=== PATIENT | female | born 1985 ===

== ENCOUNTER 2017-05-31 04:06 | Inpatient (IN) | payer BC ==
[2017-05-31 05:21] LABS: #Basophils 0.1 thou/uL (0.0-0.2); #Lymphocytes 1.6 thou/uL (1.20-3.40); #Monocytes 1.3 thou/uL (0.11-0.59); #Neutrophils 15.9 thou/uL (1.40-6.50); %Basophils 0.3 % (0.0-1.0); %Eosinophils 0.1 % (0.0-10.0); %Lymphocytes 8.6 % (21.0-51.0); %Monocytes 6.8 % (0.0-10.0); %Neutrophils 84.1 % (42.0-75.0); Hemoglobin 14.1 g/dL (12.0-16.0); Mean Corpuscular HGB CONC 33.8 g/dL (32.0-36.0); Mean Corpuscular Hemoglobin 34.7 pg (27.0-31.0); Mean Platelet Volume 6.8 fL (7.4-10.4); Platelet Count 514 thou/uL (130-400); RBC Distribution Width 11.2 % (11.5-14.5); Red Blood Cell (RBC) Count 4.06 mill/uL (4.20-5.40); White Blood Cell (WBC) Count 18.9 thou/uL (4.8-10.8)
[2017-05-31 05:42] LABS: ALT (SGPT) 48 U/L (8-55); AST (SGOT) 7 U/L (5-34); Albumin 4.3 g/dL (3.5-5.0); Alkaline Phosphatase 126 U/L (40-150); Anion Gap 26 mmol/L (10-20); BUN (Urea Nitrogen) 41 mg/dL (7.0-18.7); Bilirubin, Total 0.4 mg/dL (0.2-1.2); CK (CPK) 35 U/L (29-168); Calc. Creatinine Clearance 0 mL/min (70-130); Calcium 10.3 mg/dL (7.8-10.44); Carbon Dioxide 15 mmol/L (22-29); Chloride 105 mmol/L (98-107); Estimated GFR-MDRD 36; Globulin 3.1 g/dL (2.4-3.5); Glucose 498 mg/dL (70-105); Potassium 4.6 mmol/L (3.5-5.1); Protein, Total 7.4 g/dL (6.0-8.3); Sodium 141 mmol/L (136-145)
[2017-05-31] MEDS ORDERED: Insulin Regular 100 units/100 ml in NS IVPB SCH (05:45)
[2017-05-31 05:50] LABS: CKMB 1.7 ng/mL (0-6.6); Troponin I Less than 0.010 ng/mL (< 0.028)
[2017-05-31 05:54] LABS: Base Excess-Venous -8.7 mmol/L (-30.0-30.0); Bicarbonate (HCO3v) 12.4 mmol/L (1.0-85.0); CO2 Tension (PvCO2) 18.3 mmHg (41.0-51.0); Calcium, Ionized 0.92 mmol/L (1.12-1.32); Hemoglobin - Calc 15.6 g/dL (12.0-18.0); Lactate 3.94 mmol/L (0.50-2.20); O2 Tension (PvO2) 213.9 mmHg (35.0-45.0); Potassium 4.9 mmol/L (3.4-4.7); pH (Venous) 7.441 (7.35-7.45); vO2 Saturation-calc 99.8 % (0.0-100.0)
[2017-05-31] MEDS ORDERED: Ondansetron HCl/PF 4 MG/2 ML Vial ONE (06:09)
[2017-05-31] MEDS ORDERED: cefTRIAXone\\ROCEPHIN 1 GM, Syringe 0.4 ML in Sterile Water 9.6 ML SLOW IVP SCH (06:15)
--- NOTE | 2017-05-31 07:29 | RAD ---
CHEST 1 VIEW: HISTORY: A 31-year-old female with diabetic ketoacidosis with vomiting and diarrhea, tonsillitis. FINDINGS: Heart size is within normal limits. The lungs are clear. No pneumonia, edema, or pleural effusion. IMPRESSION: No acute intrathoracic disease. Stable from prior study. POS: [facility]
[2017-05-31 08:35] VITALS: BMI 21.7
[2017-05-31 09:18] LABS: Bilirubin Negative (Negative); Blood, Urine Large (Negative); Clarity CLEAR (Clear); Glucose, Urine (Dipstick) >=1000 mg/dL (Negative); Leukocyte Negative (Negative); Nitrite Negative (Negative); Protein, Urine (Dipstick) 30 mg/dL (Neg-Trace); Specific Gravity, Urine 1.029 (1.002-1.036); Urobilinogen 0.2 mg/dL (0.2-1.0)
[2017-05-31 09:20] LABS: Bacteria/HPF Rare-Few HPF (None Seen); Hyaline Casts/LPF 0-3 HYALINE CAST LPF (0-3 Hyaline); Pathc Cast-AUWi Flag 0.13 (0-2.49); RBC/HPF 0-3 HPF (0-3); Squamous Epithelial 0-3 HPF (0-3); WBC/HPF 0-3 HPF (0-3)
[2017-05-31 09:25] LABS: BHCG - Serum Negative (NEGATIVE); Pregs Control Background? CLEAR/WHITE (CLR/WHITE); Pregs Control Bar Appear? YES (CONTROL BAR)
[2017-05-31 09:30] LABS: Mean Corpuscular HGB CONC 34.1 g/dL (32.0-36.0); Mean Platelet Volume 6.6 fL (7.4-10.4); Platelet Count 477 thou/uL (130-400); RBC Distribution Width 11.3 % (11.5-14.5); White Blood Cell (WBC) Count 21.7 thou/uL (4.8-10.8)
[2017-05-31 09:42] LABS: Osmolality, Serum 329 mOsm/kg (280-295)
[2017-05-31 09:46] LABS: Lactic Acid 3.7 mmol/L (0.5-2.2)
[2017-05-31 09:49] LABS: Anion Gap 20 mmol/L (10-20); BUN (Urea Nitrogen) 34 mg/dL (7.0-18.7); Calc. Creatinine Clearance 49 mL/min (70-130); Calcium 9.8 mg/dL (7.8-10.44); Carbon Dioxide 23 mmol/L (22-29); Chloride 106 mmol/L (98-107); Estimated GFR-MDRD 42; Glucose 263 mg/dL (70-105); Magnesium 2.1 mg/dL (1.6-2.6); Phosphorus 2.1 mg/dL (2.3-4.7); Potassium 4.6 mmol/L (3.5-5.1); Sodium 144 mmol/L (136-145)
[2017-05-31] MEDS ORDERED: Ondansetron HCl/PF 4 MG/2 ML Vial IVP PRN (09:55)
[2017-05-31] MEDS ORDERED: NS 0.9% w/ 20 MEQ KCL 1,000 ML IV PRN ×2 (09:58)
[2017-05-31] MEDS ORDERED: Dextrose 5 %-0.45 % NaCl 1,000 ML IV PRN (09:58)
[2017-05-31] MEDS ORDERED: Sodium Chloride 0.9% 1,000 ML IV PRN ×4 (09:58)
[2017-05-31] MEDS ORDERED: CCU Electrolyte Replacement 1 EACH IVPB ONE (09:58)
[2017-05-31] MEDS ORDERED: Potassium Chloride 40 MEQ in Sodium Chloride 0.9% 250 ML 250 ML IVPB PRN (10:45)
[2017-05-31] MEDS ORDERED: Potassium Chloride 20 MEQ TAB PO PRN (10:45)
[2017-05-31] MEDS ORDERED: Potassium Phosphate 9 MMOL in Sodium Chloride 0.9% 100 ML IVPB PRN (10:45)
[2017-05-31] MEDS ORDERED: Potassium Chloride 40 MEQ in Premix Bag 1 BAG IVPB PRN (10:45)
[2017-05-31] MEDS ORDERED: Potassium Phosphate 12 MMOL in Sodium Chloride 0.9% 250 ML 250 ML IV PRN (10:45)
[2017-05-31] MEDS ORDERED: CCU ELECTROLYTE REPLACEMENT PROTOCOL FS PRN (10:45)
[2017-05-31] MEDS ORDERED: Magnesium 2 GM/NS 0.9% 100 ML 2 GM in Premix Bag 1 BAG IVPB PRN (10:45)
[2017-05-31] MEDS ORDERED: Potassium Phosphate 15 MMOL in Sodium Chloride 0.9% 250 ML 250 ML IV PRN (10:45)
[2017-05-31] MEDS ORDERED: Magnesium Oxide 400 MG TAB PO PRN ×2 (10:45)
[2017-05-31] MEDS: Clindamycin/D5W 600 MG in Premix Bag 1 BAG IVPB SCH ×2 (11:57→18:12)
[2017-05-31] MEDS: D5 1/2 NS w/20 mEq KCL 1,000 ML IV PRN ×2 (12:00→18:36)
--- NOTE | 2017-05-31 12:25 | RAD ---
CHEST 1 VIEW: HISTORY: Chest pain. COMPARISON: Earlier exam on the same date. FINDINGS: Cardiac silhouette and pulmonary vasculature are unremarkable. Mediastinum is midline. There is no confluent airspace consolidation or evidence of pneumothorax. monitoring analyst leads overlie the ches t. IMPRESSION: No active cardiopulmonary abnormalities are demonstrated. POS: [facility]
--- NOTE | 2017-05-31 12:29 | HP ---
CHIEF COMPLAINT: "Diabetic ketoacidosis." This is a complaint that is listed on the patient's ER do cumentation; however, patient's personal chief complaint is nausea and vomiting. HISTORY OF PRESENT ILLNESS: It appears that this is a lady who was transferred from [place] to our emergency department for diabetic ketoacidosis. She is an insulin-dependent diabetic, who typically uses an insulin pump at home, which she has not brought with her. She states that approximately 3 d ays ago, she started having throat pain and a sensation of swelling that has provided painful swallow ing. Denies any prior symptoms. Denies any fevers, chills, trouble breathing, shortness of breath, preceding viral illness, cough, sputum production. While this was her chief complaint upon presentat ion to the emergency department, she was subsequently found to have DKA and transferred to our facili for DKA. It appears that prior to arrival at our facility, she was diagnosed with tonsillitis as well. It does not appear that she was given any treatment or further diagnostic evaluation at that p oint in time that I can see documented or that the patient is aware of. In our emergency department, the patient was identified as having diabetic ketoacidosis, started on a n insulin drip, empirically started at 10 units, and given 2 liters of lactated Ringer's as a bolus. It appears that she was given also a dose of ceftriaxone for an upper respiratory infection. At the time of my evaluation, the patient still complains of throat pain. Denies any difficulty ankit thing. Denies any new complaints. States that she has had DKA before, but is more than 10 years ago . REVIEW OF SYSTEMS: As per HPI, includes the following: Constitutional: No recent weight changes, n o fevers, no chills as discussed above. HEENT: Painful swallowing. The patient denies any neck ful lness. Denies any new headaches. Endorses the remainder of her pain is all in her "throat." Cardio vascular: Denies any chest pain, chest pressure, shortness of breath, left-sided arm numbness or tin gling, diaphoresis. Respiratory: Denies any cough or sputum production. No recent history of such. ENT: No nasal congestion, postnasal drip. Gastrointestinal: Endorses some nausea, particularly w ith attempting to swallow. Without attempting to swallow, denies any nausea, vomiting, or abdominal pain. Denies any diarrhea or constipation. Genitourinary: Denies any dysuria, change in urinary qu antity or quality. Musculoskeletal: Denies any new myalgias or arthralgias. Skin: Denies any new rashes or lymphadenopathy. PAST MEDICAL HISTORY: Significant for, 1. Type 1 diabetes. 2. Status post section. 3. Status post tubal ligation. FAMILY HISTORY: No known family history of insulin-dependent diabetes or recurrent upper respiratory or tonsillar infections. SOCIAL HISTORY: The patient is an active tobacco user, half a pack a day. Denies any alcohol or ill icit drug use. Has multiple tattoos and piercings, none within the last month. ALLERGIES: The patient denies any known sick contacts. MEDICATIONS: Please see EMR for full details. No changes in the last 2 weeks to the patient's home medication list. PHYSICAL EXAMINATION: VITAL SIGNS: Temperature 99.6, heart rate of 107, respirations 18, satting 96% on room air, blood pr essure 114/76. GENERAL: Awake, alert, appropriate, in no acute distress, provides a reasonable history, oriented x3 . HEENT: Bilateral tonsillar enlargement without overt exudate noted. Reasonable dentition. No palpa ble lymphadenopathy. NECK: No thyromegaly. RESPIRATORY: Reasonable air movement. Clear to auscultation. No wheezes, rales, or rhonchi. CARDIOVASCULAR: S1, S2. Pulses 2+ bilateral upper extremity. No pitting pedal edema. ABDOMEN: Positive bowel sounds, soft, nontender to palpation. NEUROLOGIC: Moving all 4 extremities equally and able to self reposition in the bed without assistan ce. LABORATORY DATA AND IMAGING: WBC 21.7, hemoglobin 13.0, hematocrit 38.0, platelets 477. Sodium 144, potassium 4.6, chloride 106, bicarb 23, BUN 34, creatinine 1.45, glucose point of care 263. Serum o smolality 329, lactic acid 3.7, phosphorus 2.1. UA significant for large blood, ketones of 80, great er than 1000 glucose, protein of 30. Beta hydroxybutyrate 2.96. Initial chest x-ray on presentation , "no acute intrathoracic disease. Stable from prior study." ASSESSMENT AND PLAN: A 31-year-old type 1 insulin diabetic, presenting in diabetic ketoacidosis with nausea and vomiting. 1. The patient's presenting symptoms of nausea and vomiting could certainly be related to her diabet ic ketoacidosis. The patient has been initiated on diabetic ketoacidosis protocol. She is currently in the IMCU. Continue with IV fluids, insulin drip titration, patient is n.p.o. Suspect that the p recipitating etiology is her tonsillitis. See discussion below regarding her tonsillitis. 2. Sepsis secondary to tonsillitis with tachycardia, elevated lactate, and a potential source of inf ection and leukocytosis. Certainly some of these parameters could be driven by the patient's diabeti c ketoacidosis, but she also has a very clear etiology of infection at this point in time. Sepsis pr otocol has also been initiated. The patient has a less than 3 second capillary refill with reasonabl e skin turgor. 3. Tonsillitis question of peritonsillar cellulitis, as the patient does not have trismus or fever. We will add an empiric clindamycin with close monitoring of the patient's clinical status. Ultrasou nd submandibular evaluation also requested. At this point in time, I do not feel that the patient cl inically is demonstrating any uvula deviation or any other signs or symptoms suggesting an underlying abscess. However, if the patient does fail to improve within the next 24 hours with supportive ammy gement and empiric antibiotics, would have a low threshold for further radiological examination. In the meantime, the patient is being evaluated for Strep as well as a viral panel. Greater than 30 minutes critical care time spent coordinating care for the patient. The patient is a dmitted to the [facility] as a FULL CODE.
[2017-05-31] MEDS ORDERED: ISOVUE-370 76%-LOCM 1 ML ONE (13:27)
[2017-05-31 13:46] LABS: Anion Gap 11 mmol/L (10-20); BUN (Urea Nitrogen) 27 mg/dL (7.0-18.7); Calc. Creatinine Clearance 62 mL/min (70-130); Calcium 9.8 mg/dL (7.8-10.44); Carbon Dioxide 27 mmol/L (22-29); Chloride 109 mmol/L (98-107); Estimated GFR-MDRD 55; Glucose 145 mg/dL (70-105); Sodium 143 mmol/L (136-145)
--- NOTE | 2017-05-31 14:20 | ULT ---
ULTRASOUND SOFT TISSUE NECK: HISTORY: A 31-year-old female with a history of swelling in the submandibular and peritonsillar region with co ncern for cellulitis versus abscess. Swelling of the neck, unable to swallow for 1 week. FINDINGS: Right and left submandibular and upper neck regions are evaluated. There are some enlarged lymph nod es in the right neck measuring up to approximately 0.7 x 1.2 x 2.2 cm. In the left neck, there are m ultiple lymph nodes, the largest measuring approximately 0.7 x 1.7 x 1.7 cm. These have more the louie earance of reactive lymph nodes. The left and right submandibular glands appear unremarkable. No ev idence for abscess. IMPRESSION: Some borderline-sized right and left neck lymph nodes. Unremarkable right and left visualized subman dibular glands. No evidence of abscess. If the patient has persistent or worsening symptoms, consideration for a followup soft tissue neck CT with IV contrast might be of benefit. POS: [facility]
[2017-05-31] MEDS: Heparin 5,000 UNITS/ML VIAL SC SCH ×2 (15:13→22:15)
--- NOTE | 2017-05-31 16:54 | CT ---
CT OF THE NECK WITH CONTRAST 05/31/17 HISTORY: Stridor. Pain in the neck and hoarseness. TECHNIQUE: Multiple contiguous axial images were obtained in a CT of the neck with contrast. Sagittal and harley l reformats were performed. FINDINGS: There is a multifocal area of low density along the right aspect of the false vocal cord. This involv es the aryepiglottic fold. This measures approximately 2.0 x 1.0 x 2.9 cm in size. This could represe nt edema or a multiloculated abscess along the right false vocal cord. The airway is mildly narrowed in this location. This fluid collection does not extend down to the true vocal cords. No mucosal abnormality is seen in the nasopharynx or oropharynx. The subglottic mucosa is unremarkabl e. The patient has a tongue piercing. The visualized intracranial structures are unremarkable. There are mildly prominent bilateral cervical lymph nodes which are likely reactive. The paranasal sinuses are well aerated except for a small mucous retention cyst in the right maxillary sinus. The visualized lung apices are unremarkable. The bones are unremarkable. IMPRESSION: Complex fluid collection surrounding the true vocal cords and extending to the aryepiglottic folds. T his may represent an abscess in this location. POS: [facility]
[2017-05-31 17:07] LABS: Anion Gap 14 mmol/L (10-20); BUN (Urea Nitrogen) 24 mg/dL (7.0-18.7); Calc. Creatinine Clearance 64 mL/min (70-130); Calcium 9.3 mg/dL (7.8-10.44); Carbon Dioxide 26 mmol/L (22-29); Chloride 104 mmol/L (98-107); Estimated GFR-MDRD 56; Glucose 281 mg/dL (70-105); Potassium 4.5 mmol/L (3.5-5.1); Sodium 139 mmol/L (136-145)
[2017-05-31] MEDS ORDERED: Dextrose 5% in Water 1,000 ML IV PRN (17:08)
[2017-05-31] MEDS ORDERED: Dextrose 50% Abboject 50 ML SYRINGE IVP PRN (17:08)
[2017-05-31] MEDS ORDERED: Insulin Detemir 100 UNITS/ML 10 UNITS in Pre-Filled Syringe 1 EACH SC SCH (17:30)
[2017-05-31] MEDS ORDERED: Aluminum & Magnesium Hydroxide 60 ML, diphenhydrAMINE 150 MG, Lidocaine 2% Viscous Solu... SSW SCH ×4 (18:30)
[2017-05-31] MEDS ORDERED: Vancomycin HCl 750 MG in Sodium Chloride 0.9% 250 ML 250 ML IVPB SCH (18:45)
[2017-05-31] MEDS: HumaLOG 300 UNITS/3 ML VIAL SC PRN (20:41)
[2017-05-31] MEDS ORDERED: Cefepime 2 GM in Sodium Chloride 0.9% 100 ML IVPB SCH (21:00)
--- NOTE | 2017-05-31 21:07 | CON ---
DATE OF CONSULTATION: 05/31/2017 SERVICE: Pulmonary Medicine. REASON FOR CONSULTATION: Diabetic ketoacidosis. HISTORY OF PRESENT ILLNESS: The patient is a 31-year-old white female with past medical history significant for type 1 diabetes mellitus. She was in her usual state of health when she had swelling and odynophagia for roughly 3 days prior to presenting to the hospital. Because of difficulty swallowing, she stopped taking p.o. Because of this, she discontinued her insulin and developed diabetic ketoacidosis. She was initially on empiric insulin drip at 10 units per hour the Emergency Department. Overnight, she seemed to close. That being said, she has inspiratory stridor, prolonged expiratory phase, and looks uncomfortable whenever she tries to breathe a little bit more quickly. When she is sleeping comfortably with tidal respirations, there is still in audible prolonged expiratory and prolonged inspiratory phase. Otherwise, she has never had a similar presentation prior to this. Previously, she had fairly decent control of her type 1 diabetes. PAST MEDICAL HISTORY: Diabetes mellitus, type 1. PAST SURGICAL HISTORY: 1. section x1. 2. Tubal ligation. FAMILY HISTORY: Noncontributory. SOCIAL HISTORY: She smokes half pack on a daily basis and has a 5-pack year history of smoking. She denies any alcohol or illicit drugs. She has no exposure to chemicals, dust, asbestos, or tuberculosis. She has no sick contacts that she is aware of. ALLERGIES: No known drug allergies. MEDICATIONS: List of her inpatient medications were reviewed. Multiple small updates were made. REVIEW OF SYSTEMS: General, head, ears, eyes, nose, throat, cardiovascular, respiratory, GI, , musculoskeletal, neurologic, and skin is negative except as mentioned in the HPI. PHYSICAL EXAMINATION: VITAL SIGNS: Afebrile, pulse 96, blood pressure 128/73, respirations 16, saturation 96% on room air. GENERAL: Patient is awake, alert, in no apparent distress. LUNGS: Decreased air entry. There is a slightly prolonged expiratory phase. I do not appreciate wheezing or rhonchi. HEART: Normal rate, regular. ABDOMEN: Soft, nontender, nondistended. Bowel sounds are positive. MUSCULOSKELETAL: No cyanosis or clubbing. There is no pitting in the bilateral lower extremities. NEUROLOGIC: Grossly nonfocal. LABORATORY DATA: WBC 21.7, hemoglobin 13.0, platelets 477,000. Neutrophil count was elevated. PH 7.44, pCO2 of 18, pO2 of 213. Creatinine 1.14 and gently down trending. BUN 27. Basic metabolic profile is otherwise unremarkable. Sodium 143. Blood sugars ranged from 176-159. Calcium 9.8. Serum is negative. Lactate was originally 2.7 and is up trending to 3.7. Liver function studies were previously unremarkable. Phosphorus is low, but magnesium falls within the normal limits. Group A Streptococcus was negative. Current culture is pending. IMAGING DATA: 1. Soft tissues ultrasound of the neck demonstrates borderline sized right and left neck lymph nodes. Submandibular glands were unremarkable. No evidence of significant abscess. 2. Chest x-ray demonstrates no acute cardiopulmonary abnormality. Bilateral nipple studs are in place. Cardiac silhouette is roughly normal on this portable film. ASSESSMENT: 1. Diabetic ketoacidosis. 2. Stridor. 3. Severe sepsis. 4. Acute kidney injury, improving. PLAN: Other the kidney injury is improving, we will get a dedicated CT of the neck of the soft tissue with contrast. Hopefully, this will identify what we may or may not be dealing with here. We are going to watch the patient's respiratory status closely. If she has a difficult time handling her secretions , she will be empirically intubated in the operating room. Pulmonary Critical Care will continue to follow while she remains in this location. 70 minutes have been devoted to this patient in various activities. I personally reviewed all imaging studies and laboratory data noted within this document. For at least half of this time, I was interacting with the patient at bedside or coordinating care with the care team. For the remainder of the time, I was immediately available to the patient in the hospital unit. RYAN
[2017-05-31] MEDS: Famotidine/PF 20 mg/2ml Vial SLOW IVP SCH (22:15)
[2017-05-31] MEDS: Cefepime 2 GM, Syringe 2.5 ML in Sterile Water 10 ML SLOW IVP SCH (22:15)
[2017-06-01] MEDS: metroNIDAZOLE 500 MG in Premix Bag 1 BAG IVPB SCH ×5 (00:07→23:20)
--- NOTE | 2017-06-01 02:46 | HP ---
DATE OF EVALUATION: 05/31/2017 CHIEF COMPLAINT: I am seeing Courtney in consultation at the request of Dr. Edmonds at the Intensive C are Unit for evaluation and treatment of laryngeal swelling. HISTORY OF PRESENT ILLNESS: The patient is a 31-year-old woman who has had about a week long history of sore throat that has progressively worsened. She complains of right-sided pain. She finds it di fficult to swallow because of the pain and she finds it difficult to breathe if she is exerting herse lf, but at rest, she seems to be breathing well. She denies any hemoptysis. She has never had anyth ing similar previously. She does have a history of diabetes. A CT scan was performed because of her sepsis evaluation and her sore throat and was noted to have some soft tissue swelling around the lar ynx, so I was asked to evaluate the patient. PAST MEDICAL HISTORY: Diabetes. PAST SURGICAL HISTORY: No ear, nose, and throat surgery. CURRENT MEDICATIONS: Reviewed including antibiotic. She is on cefepime and Flagyl. REVIEW OF SYSTEMS: She has had fever. She has sore throat, but no drooling. She denies shortness o f breath or palpitations. No vomiting or diarrhea. No cough. No easy bruising or bleeding. PHYSICAL EXAMINATION: GENERAL: The patient is a healthy appearing woman who is resting comfortably in supine position when I arrived in the IMU and arouses easily and is appropriately interactive. HEENT: Head is normocephalic. The parotid and submandibular glands are smooth. There is normal fac ial tone. External ears and nose show no scars, lesions, or masses. Ear canals are clear. Rhinosco py was performed with flexible endoscopy. She has a deviated septum to the right side, but the mucos a is pink and moist throughout without any pus or polyps. The nasopharynx was examined. The posteri or choanae are patent to fossa of Rosenmuller and torus tubarius are normal with [place], moist mucosa. No purulent discharge noted. Oral cavity, lips, teeth, and gums are in good repair. Hard and soft palate are normal. Tongue protrudes midline, has a tongue piercing. The posterior oropharynx is sym metrical with 1+ tonsils and no erythema or exudates. Pharyngeal mucosa is healthy in appearance. H ypopharynx, larynx was examined with the flexible endoscope. The base of tongue, vallecula, epiglott is, and pharyngeal gutters are all normal in appearance. She does have some minimal exudates over th e supraglottic larynx and she has an abscess formed over the right arytenoid. The airway was patent. The vocal cords were mobile and meet in the midline and the subglottic space was completely clear. NECK: There is no mass, thyromegaly. Trachea is midline. There is no stridor, but she does have so me inspiratory and expiratory sound consistent with just some airway edema, but is very minimal. IMAGING: Data reviewed the CT scan which showed soft tissue swelling and fluid collection over the s upraglottic larynx. A little bit of edema in the postcricoid area, but there was no extension either laterally or inferiorly. IMPRESSION: Laryngeal abscess was very small and I do not believe airway concern at this time. PLAN: I have discussed with Dr. Edmonds my thoughts, felt that it was appropriate to observe at this time as the lesion looks like it is about ready to rupture on its own. The alternative would be to intubate her in the ICU, taken to the operating room, intubated her, and perform an incision and jonah rodriguez; but given her comfort level, I think where fine observing her. I did recommend increasing cove r Staph and Strep. I also think a dose of steroids would be helpful to help with the edema and will be happy to reevaluate at any time.
[2017-06-01 04:43] LABS: #Lymphocytes 2.1 thou/uL (1.20-3.40); #Monocytes 1.4 thou/uL (0.11-0.59); #Neutrophils 10.9 thou/uL (1.40-6.50); %Basophils 0.1 % (0.0-1.0); %Eosinophils 0.2 % (0.0-10.0); %Lymphocytes 14.3 % (21.0-51.0); %Monocytes 9.7 % (0.0-10.0); %Neutrophils 75.6 % (42.0-75.0); Hemoglobin 12.3 g/dL (12.0-16.0); Mean Corpuscular HGB CONC 33.6 g/dL (32.0-36.0); Mean Corpuscular Hemoglobin 34.9 pg (27.0-31.0); Mean Platelet Volume 6.5 fL (7.4-10.4); Platelet Count 397 thou/uL (130-400); RBC Distribution Width 11.3 % (11.5-14.5); Red Blood Cell (RBC) Count 3.52 mill/uL (4.20-5.40); White Blood Cell (WBC) Count 14.4 thou/uL (4.8-10.8)
[2017-06-01 05:14] LABS: Anion Gap 10 mmol/L (10-20); BUN (Urea Nitrogen) 16 mg/dL (7.0-18.7); Calc. Creatinine Clearance 85 mL/min (70-130); Calcium 9.4 mg/dL (7.8-10.44); Carbon Dioxide 26 mmol/L (22-29); Chloride 107 mmol/L (98-107); Estimated GFR-MDRD 79; Glucose 148 mg/dL (70-105); Potassium 4.2 mmol/L (3.5-5.1); Sodium 139 mmol/L (136-145)
[2017-06-01] MEDS: Vancomycin HCl 750 MG in Sodium Chloride 0.9% 250 ML 250 ML IVPB SCH ×2 (05:54→17:45)
[2017-06-01] MEDS: Famotidine/PF 20 mg/2ml Vial SLOW IVP SCH ×2 (07:15→20:49)
[2017-06-01] MEDS: Heparin 5,000 UNITS/ML VIAL SC SCH ×3 (07:15→20:50)
[2017-06-01] MEDS: predniSONE 20 MG TAB PO SCH (07:15)
[2017-06-01] MEDS: HumaLOG 300 UNITS/3 ML VIAL SC PRN ×3 (07:22→17:00)
[2017-06-01] MEDS: Cefepime 2 GM, Syringe 2.5 ML in Sterile Water 10 ML SLOW IVP SCH ×2 (09:06→20:48)
[2017-06-01] MEDS: Insulin Detemir 100 UNITS/ML 10 UNITS in Pre-Filled Syringe 1 EACH SC SCH ×2 (09:06→20:50)
--- NOTE | 2017-06-01 10:52 | PRG ---
DATE OF SERVICE: 06/01/2017 SERVICE: Pulmonary Medicine. INTERVAL HISTORY: The patient feels no better, no worse today. She continues to work a little bit t o get air in and out of her lungs. That being said, she has horrendous discomfort associated with ea ch swallow. She denies any current fevers, chills, nausea or vomiting. Because she has had no progr essive improvement over the past 24 hours, ENT is planning on lancing this lesion under general anest hesia. Otherwise, there has been no interval change to her condition. Her DKA is under much better control. PHYSICAL EXAMINATION: VITAL SIGNS: Afebrile, pulse 78, blood pressure 122/89, respirations 19, saturation 98% on room air. GENERAL: Patient is awake, alert, no apparent distress. LUNGS: Slightly reduced air entry. There is a slightly prolonged expiratory phase as well as inspir atory phase. HEART: Normal rate, regular. ABDOMEN: Soft, nontender, nondistended. Bowel sounds are positive. MUSCULOSKELETAL: No cyanosis or clubbing. No pitting in the bilateral lower extremities. NEUROLOGIC: Grossly nonfocal. LABORATORY DATA: WBC 14.4, hemoglobin 12.3, platelets 397,000. PH 7.44, pCO2 18. Basic metabolic p rofile is essentially unremarkable at this time. Her gap is closed and her acidosis has resolved. B eta hydroxybutyrate acid has resolved. Group A strep final culture was unremarkable. Respiratory vi ramirez panel was negative as was the urine culture. IMAGING: CT soft tissue of the neck demonstrates findings consistent with an abscess involving the a rytenoid. ASSESSMENT: 1. Diabetic ketoacidosis, resolved. 2. Stridor. 3. Abscess involving laryngeal structures. 4. Severe sepsis, improving. 5. Acute kidney injury, resolved. PLAN: The patient is going to go down for an I&D of this abscess under general anesthesia this after noon. Pulmonary or Critical Care will continue to follow while the patient remains in this location. After the I&D is done, if the patient is still protecting her airway quite well, she can be transit ioned to the medical unit. We will continue our antibiotics including cefepime, metronidazole, and v ancomycin.
--- NOTE | 2017-06-01 12:07 | PDOC.PN ---
- Subjective Encounter Start Date: 06/01/17 Encounter Start Time: 12:05 Subjective: nsg notes rev, julia ovn, no new c/o, mother at bedside, seated in bed -: eating lunch, good spirit, still has pain i nthroat - controlled, toleratin -: PO - Objective Resuscitation Status: Resuscitation Status FULL:Full Resuscitation Vital Signs & Weight: Vital Signs (12 hours) Temp Pulse Resp BP BP Pulse Ox 06/01/17 11:37 97.6 F 79 18 124/79 98 06/01/17 07:30 98.5 F 78 19 98 06/01/17 07:14 98.5 F 78 19 122/89 98 06/01/17 03:50 98.7 F 71 20 147/85 H 99 06/01/17 00:18 99 F 79 20 128/67 96 Weight Weight 123 lb I&O: 05/31/17 06/01/17 06/02/17 06:59 06:59 06:59 Intake Total 3313 1600 Output Total 755 300 Balance 2558 1300 Result Diagrams: 06/02/17 05:06 06/02/17 05:06 Additional Labs: Accuchecks 06/01/17 06/01/17 06/01/17 11:09 07:22 03:56 POC Glucose 263 H 225 H 122 H 06/01/17 05/31/17 05/31/17 00:00 22:08 19:54 POC Glucose 148 H 139 H 180 H 05/31/17 05/31/17 05/31/17 18:58 18:05 17:00 POC Glucose 185 H 226 H 305 H 05/31/17 05/31/17 05/31/17 16:00 15:01 14:02 POC Glucose 211 H 188 H 159 H 05/31/17 05/31/17 13:04 11:55 POC Glucose 127 H 176 H Phys Exam - Physical Examination Constitutional: NAD HEENT: PERRLA, moist MMs, sclera anicteric Neck: no nodes, no JVD coarse throughout particularly RML RLL no wheezing, reasonable air mvmt Cardiovascular: RRR, no significant murmur, no rub Gastrointestinal: soft, no distention, positive bowel sounds Musculoskeletal: no edema, pulses present Psychiatric: normal affect, A&O x 3 Dx/Plan (1) DKA, type 1 Code(s): E10.10 - TYPE 1 DIABETES MELLITUS WITH KETOACIDOSIS WITHOUT COMA Status: Acute (2) Peritonsillar abscess Code(s): J36 - PERITONSILLAR ABSCESS Status: Acute (3) Sepsis Code(s): A41.9 - SEPSIS, UNSPECIFIED ORGANISM Status: Acute - Plan DKA improved * off insulin gtt on SQ regimen, tolerating PO sepsis 2/2 periepigotteal abscess, immproved * appreciate critical care c/s * continue empiric vanc, metronidazole, cefepime - will treat as if pt has a component of immunocompromise 2/2 longstanding diabetes and severity of disease * symptomatic mgmt peritonsillar/ periepiglotteal abscess * appreciate ENT c/s * abx as above * tentative plan for endoscopic eval today diet: as vijaya activity: as vijaya dvt ppx: heparin Review of Systems - Medications/Allergies Allergies/Adverse Reactions: Allergies Allergy/AdvReac Type Severity Reaction Status Date / Time No Known Drug Allergies Allergy Verified 05/31/17 08:03 Medications: Current Medications Dextrose/Water (Dextrose 50%) 25 gm IVP PRN PRN PRN Reason: HYPOGLYCEMIA PROTOCOL Famotidine (Pepcid) 20 mg SLOW IVP Q12HR ON LICENSE OF [facility] Last Admin: 06/01/17 07:15 Dose: 20 mg Glucagon (Glucagon) 1 mg IM PRN PRN PRN Reason: HYPOGLYCEMIA PROTOCOL Heparin Sodium (Porcine) (Heparin) 5,000 units SC TID ON LICENSE OF [facility] Last Admin: 06/01/17 07:15 Dose: 5,000 units Dextrose/Sodium Chloride (D5 1/2 Ns) 1,000 mls @ 250 mls/hr IV .Q4H PRN; Protocol PRN Reason: Step 4 of DKA Protocol Potassium Chloride/Dextrose/Sod Cl (D5 1/2 Ns W/20 Meq Kcl) 1,000 mls @ 250 mls /hr IV .Q4H PRN; Protocol PRN Reason: Step 4 of DKA Protocol Last Admin: 05/31/17 18:36 Dose: 1,000 mls Sodium Chloride (Normal Saline 0.9%) 1,000 mls @ 500 mls/hr IV .Q2H PRN; Protocol PRN Reason: Step 1 of DKA Protocol Sodium Chloride (Normal Saline 0.9%) 1,000 mls @ 1,000 mls/hr IV .Q1H PRN; Protocol PRN Reason: Step 1 of DKA Protocol Sodium Chloride (Normal Saline 0.9%) 1,000 mls @ 250 mls/hr IV .Q4H PRN; Protocol PRN Reason: SEE STEP 3 OF DKA PROTOCOL Sodium Chloride (Normal Saline 0.9%) 1,000 mls @ 500 mls/hr IV .Q2H PRN; Protocol PRN Reason: Step 2 of DKA Protocol Potassium Chloride/Sodium Chloride (Ns 0.9% W/ 20 Meq Kcl) 1,000 mls @ 500 mls/ hr IV .Q2H PRN; Protocol PRN Reason: Step 2 of DKA Protocol Potassium Chloride/Sodium Chloride (Ns 0.9% W/ 20 Meq Kcl) 1,000 mls @ 250 mls/ hr IV .Q4H PRN; Protocol PRN Reason: SEE STEP 3 OF DKA PROTOCOL Potassium Chloride 40 meq/ (Sodium Chloride) 270 mls @ 135 mls/hr IVPB ASDIR PRN PRN Reason: FOR SERUM K+ 2.5 - 3.5 Potassium Chloride 40 meq/ (Device) 100 mls @ 50 mls/hr IVPB ASDIR PRN PRN Reason: FOR SERUM K+ 2.5 - 3.5 Magnesium Sulfate 1 gm/ Sodium (Chloride) 102 mls @ 102 mls/hr IV PRN PRN PRN Reason: MAG LEVEL 1.4 - 2.0 Magnesium Sulfate 2 gm/ Device 100 mls @ 100 mls/hr IVPB ASDIR PRN PRN Reason: MAGNESIUM < 1.4 Potassium Phosphate 9 mmol/ (Sodium Chloride) 103 mls @ 25.75 mls/hr IVPB ASDIR PRN PRN Reason: Phosphate 1.0-1.8 Potassium Phosphate 12 mmol/ (Sodium Chloride) 254 mls @ 63.5 mls/hr IV ASDIR PRN PRN Reason: Serum phosphate 0.5-0.9 Potassium Phosphate 15 mmol/ (Sodium Chloride) 255 mls @ 63.75 mls/hr IV ASDIR PRN PRN Reason: Serum Phos < 0.5 Insulin Detemir 10 units/ (Miscellaneous Medication) 0.1 mls @ 0 mls/hr SC BID TER[facility] Last Admin: 06/01/17 09:06 Dose: 0.1 mls Dextrose/Water (D5w) 1,000 mls @ 0 mls/hr IV INF PRN; As Directed PRN Reason: HYPOGLYCEMIA PROTOCOL Metronidazole 500 mg/ Device 100 mls @ 100 mls/hr IVPB 0600,1200,1800,2359 ON LICENSE OF [facility] Last Admin: 06/01/17 05:54 Dose: 100 mls Vancomycin HCl 750 mg/ Sodium (Chloride) 250 mls @ 250 mls/hr IVPB 0600,1800 ON LICENSE OF [facility] Last Admin: 06/01/17 05:54 Dose: 250 mls Cefepime HCl 2 gm/ Syringe 2.5 (ml/ Sterile Water) 12.5 mls @ 150 mls/hr SLOW IVP 0900,2100 ON LICENSE OF [facility] Last Admin: 06/01/17 09:06 Dose: 12.5 mls Insulin Human Lispro (Humalog) 0 units SC .MODERATE SLIDING SC PRN; Protocol PRN Reason: MODERATE SLIDING SCALE Last Admin: 06/01/17 07:22 Dose: 4 unit Magnesium Oxide (Magnesium Oxide) 400 mg PO BIDPRN PRN PRN Reason: FOR SERUM MAG 1.4 - 2.0 Magnesium Oxide (Magnesium Oxide) 800 mg PO PRN PRN PRN Reason: FOR SERUM MAG < 1.4 Miscellaneous Medication (Phos-Nak) 1 pkt PO TIDPRN PRN PRN Reason: FOR PHOS LEVEL 1.0 - 1.8 Miscellaneous Medication (Phos-Nak) 2 pkt PO TIDPRN PRN PRN Reason: FOR PHOS LEVEL 0.5 - 1.0 Miscellaneous Medication (Pharmacy To Dose) 1 each IVPB PRN PRN PRN Reason: Pharmacy to dose Morphine Sulfate (Morphine) 2 mg SLOW IVP Q2H PRN PRN Reason: Pain Last Admin: 06/01/17 01:46 Dose: 2 mg Ccu Electrolyte (Replacement Protocol) 0 each FS PRN PRN PRN Reason: FOR ELECTROLYTE REPLACEMENT Ondansetron HCl (Zofran) 4 mg IVP Q6H PRN PRN Reason: Nausea/Vomiting Potassium Chloride (K-Dur) 40 meq PO ASDIR PRN PRN Reason: FOR SERUM K+ 2.5 - 3.5 Potassium Chloride (Klor-Con) 40 meq PER TUBE ASDIR PRN PRN Reason: FOR SERUM K+ 2.5-3.5 Prednisone (Prednisone) 40 mg PO QAM-[facility] Last Admin: 06/01/17 07:15 Dose: 40 mg
[2017-06-02] MEDS: metroNIDAZOLE 500 MG in Premix Bag 1 BAG IVPB SCH ×4 (05:11→23:16)
[2017-06-02 05:41] LABS: #Lymphocytes 1.9 thou/uL (1.20-3.40); #Monocytes 0.9 thou/uL (0.11-0.59); #Neutrophils 6.4 thou/uL (1.40-6.50); %Basophils 0.1 % (0.0-1.0); %Eosinophils 0.2 % (0.0-10.0); %Lymphocytes 20.8 % (21.0-51.0); %Neutrophils 68.8 % (42.0-75.0); Hemoglobin 12.1 g/dL (12.0-16.0); Mean Corpuscular HGB CONC 33.6 g/dL (32.0-36.0); Mean Corpuscular Hemoglobin 34.9 pg (27.0-31.0); Mean Platelet Volume 6.5 fL (7.4-10.4); Platelet Count 368 thou/uL (130-400); Red Blood Cell (RBC) Count 3.47 mill/uL (4.20-5.40); White Blood Cell (WBC) Count 9.2 thou/uL (4.8-10.8)
[2017-06-02 06:06] LABS: Vancomycin, Trough 3.4 ug/mL
[2017-06-02 06:22] LABS: Anion Gap 12 mmol/L (10-20); BUN (Urea Nitrogen) 11 mg/dL (7.0-18.7); Calc. Creatinine Clearance 108 mL/min (70-130); Calcium 9.2 mg/dL (7.8-10.44); Carbon Dioxide 27 mmol/L (22-29); Chloride 105 mmol/L (98-107); Estimated GFR-MDRD Greater than 90; Glucose 134 mg/dL (70-105); Potassium 3.6 mmol/L (3.5-5.1); Sodium 140 mmol/L (136-145)
[2017-06-02] MEDS: Vancomycin HCl 750 MG in Sodium Chloride 0.9% 250 ML 250 ML IVPB SCH (06:39)
[2017-06-02] MEDS: Insulin Detemir 100 UNITS/ML 10 UNITS in Pre-Filled Syringe 1 EACH SC SCH ×2 (08:11→20:32)
[2017-06-02] MEDS: Heparin 5,000 UNITS/ML VIAL SC SCH ×3 (08:12→20:32)
[2017-06-02] MEDS: Famotidine/PF 20 mg/2ml Vial SLOW IVP SCH ×2 (08:14→20:31)
[2017-06-02] MEDS: predniSONE 20 MG TAB PO SCH (08:14)
[2017-06-02] MEDS: Cefepime 2 GM, Syringe 2.5 ML in Sterile Water 10 ML SLOW IVP SCH ×2 (08:14→20:30)
--- NOTE | 2017-06-02 09:49 | PDOC.PN ---
- Subjective Encounter Start Date: 06/02/17 Encounter Start Time: 09:47 Subjective: nsg notes rev, julia ovn, was able to sleep overnight and is currently -: feeling hungry - Objective Resuscitation Status: Resuscitation Status FULL:Full Resuscitation Vital Signs & Weight: Vital Signs (12 hours) Temp Pulse Resp BP Pulse Ox 06/02/17 07:15 97.8 F 65 15 124/86 98 06/02/17 04:00 98.2 F 70 20 148/90 H 99 06/02/17 00:00 98.8 F 70 20 143/80 H 99 Weight Admit Weight 123 lb Weight 123 lb I&O: 06/01/17 06/02/17 06/03/17 06:59 06:59 06:59 Intake Total 3313 7570 Output Total 755 2100 Balance 2558 5470 Result Diagrams: 06/02/17 05:06 06/02/17 05:06 Additional Labs: Accuchecks 06/02/17 06/02/17 06/02/17 07:13 04:36 00:29 POC Glucose 111 H 125 H 250 H 06/01/17 06/01/17 06/01/17 20:49 15:20 11:09 POC Glucose 248 H 217 H 263 H Phys Exam - Physical Examination Constitutional: NAD HEENT: PERRLA, moist MMs Respiratory: no wheezing, no rales, no rhonchi mildly stridorous subjectively imprv compared to yesterday Cardiovascular: RRR, no significant murmur, no rub Gastrointestinal: soft, non-tender, no distention, positive bowel sounds Musculoskeletal: no edema, pulses present Neurological: moves all 4 limbs Psychiatric: normal affect, A&O x 3 Skin: no rash, normal turgor, cap refill <2 seconds Dx/Plan (1) DKA, type 1 Code(s): E10.10 - TYPE 1 DIABETES MELLITUS WITH KETOACIDOSIS WITHOUT COMA Status: Acute (2) Peritonsillar abscess Code(s): J36 - PERITONSILLAR ABSCESS Status: Acute (3) Sepsis Code(s): A41.9 - SEPSIS, UNSPECIFIED ORGANISM Status: Acute - Plan DKA improved * off insulin gtt on SQ regimen, tolerating PO sepsis 2/2 periepigotteal abscess, immproved * appreciate critical care c/s * continue empiric vanc, metronidazole, cefepime * symptomatic mgmt - pain ctrl peritonsillar/ periepiglotteal abscess * appreciate ENT c/s * abx as above * tentative plan for endoscopic eval today diet: as vijaya activity: as vijaya dvt ppx: heparin Review of Systems - Medications/Allergies Allergies/Adverse Reactions: Allergies Allergy/AdvReac Type Severity Reaction Status Date / Time No Known Drug Allergies Allergy Verified 05/31/17 08:03 Medications: Current Medications Dextrose/Water (Dextrose 50%) 25 gm IVP PRN PRN PRN Reason: HYPOGLYCEMIA PROTOCOL Famotidine (Pepcid) 20 mg SLOW IVP Q12HR [facility] Last Admin: 06/02/17 08:14 Dose: 20 mg Glucagon (Glucagon) 1 mg IM PRN PRN PRN Reason: HYPOGLYCEMIA PROTOCOL Heparin Sodium (Porcine) (Heparin) 5,000 units SC TID [facility] Last Admin: 06/02/17 08:12 Dose: Not Given Dextrose/Sodium Chloride (D5 1/2 Ns) 1,000 mls @ 250 mls/hr IV .Q4H PRN; Protocol PRN Reason: Step 4 of DKA Protocol Potassium Chloride/Dextrose/Sod Cl (D5 1/2 Ns W/20 Meq Kcl) 1,000 mls @ 250 mls /hr IV .Q4H PRN; Protocol PRN Reason: Step 4 of DKA Protocol Last Admin: 05/31/17 18:36 Dose: 1,000 mls Sodium Chloride (Normal Saline 0.9%) 1,000 mls @ 500 mls/hr IV .Q2H PRN; Protocol PRN Reason: Step 1 of DKA Protocol Sodium Chloride (Normal Saline 0.9%) 1,000 mls @ 1,000 mls/hr IV .Q1H PRN; Protocol PRN Reason: Step 1 of DKA Protocol Sodium Chloride (Normal Saline 0.9%) 1,000 mls @ 250 mls/hr IV .Q4H PRN; Protocol PRN Reason: SEE STEP 3 OF DKA PROTOCOL Sodium Chloride (Normal Saline 0.9%) 1,000 mls @ 500 mls/hr IV .Q2H PRN; Protocol PRN Reason: Step 2 of DKA Protocol Potassium Chloride/Sodium Chloride (Ns 0.9% W/ 20 Meq Kcl) 1,000 mls @ 500 mls/ hr IV .Q2H PRN; Protocol PRN Reason: Step 2 of DKA Protocol Potassium Chloride/Sodium Chloride (Ns 0.9% W/ 20 Meq Kcl) 1,000 mls @ 250 mls/ hr IV .Q4H PRN; Protocol PRN Reason: SEE STEP 3 OF DKA PROTOCOL Potassium Chloride 40 meq/ (Sodium Chloride) 270 mls @ 135 mls/hr IVPB ASDIR PRN PRN Reason: FOR SERUM K+ 2.5 - 3.5 Potassium Chloride 40 meq/ (Device) 100 mls @ 50 mls/hr IVPB ASDIR PRN PRN Reason: FOR SERUM K+ 2.5 - 3.5 Magnesium Sulfate 1 gm/ Sodium (Chloride) 102 mls @ 102 mls/hr IV PRN PRN PRN Reason: MAG LEVEL 1.4 - 2.0 Magnesium Sulfate 2 gm/ Device 100 mls @ 100 mls/hr IVPB ASDIR PRN PRN Reason: MAGNESIUM < 1.4 Potassium Phosphate 9 mmol/ (Sodium Chloride) 103 mls @ 25.75 mls/hr IVPB ASDIR PRN PRN Reason: Phosphate 1.0-1.8 Potassium Phosphate 12 mmol/ (Sodium Chloride) 254 mls @ 63.5 mls/hr IV ASDIR PRN PRN Reason: Serum phosphate 0.5-0.9 Potassium Phosphate 15 mmol/ (Sodium Chloride) 255 mls @ 63.75 mls/hr IV ASDIR PRN PRN Reason: Serum Phos < 0.5 Insulin Detemir 10 units/ (Miscellaneous Medication) 0.1 mls @ 0 mls/hr SC BID [facility] Last Admin: 06/02/17 08:11 Dose: Not Given Dextrose/Water (D5w) 1,000 mls @ 0 mls/hr IV INF PRN; As Directed PRN Reason: HYPOGLYCEMIA PROTOCOL Metronidazole 500 mg/ Device 100 mls @ 100 mls/hr IVPB 0600,1200,1800,2359 [facility] Last Admin: 06/02/17 05:11 Dose: 100 mls Cefepime HCl 2 gm/ Syringe 2.5 (ml/ Sterile Water) 12.5 mls @ 150 mls/hr SLOW IVP 0900,2100 [facility] Last Admin: 06/02/17 08:14 Dose: 12.5 mls Vancomycin HCl 1 gm/ Device 200 mls @ 200 mls/hr IVPB Q8HR [facility] Insulin Human Lispro (Humalog) 0 units SC .MODERATE SLIDING SC PRN; Protocol PRN Reason: MODERATE SLIDING SCALE Last Admin: 06/01/17 17:00 Dose: 4 unit Magnesium Oxide (Magnesium Oxide) 400 mg PO BIDPRN PRN PRN Reason: FOR SERUM MAG 1.4 - 2.0 Magnesium Oxide (Magnesium Oxide) 800 mg PO PRN PRN PRN Reason: FOR SERUM MAG < 1.4 Miscellaneous Medication (Phos-Nak) 1 pkt PO TIDPRN PRN PRN Reason: FOR PHOS LEVEL 1.0 - 1.8 Miscellaneous Medication (Phos-Nak) 2 pkt PO TIDPRN PRN PRN Reason: FOR PHOS LEVEL 0.5 - 1.0 Miscellaneous Medication (Pharmacy To Dose) 1 each IVPB PRN PRN PRN Reason: Pharmacy to dose Morphine Sulfate (Morphine) 2 mg SLOW IVP Q2H PRN PRN Reason: Pain Last Admin: 06/02/17 04:27 Dose: 2 mg Ccu Electrolyte (Replacement Protocol) 0 each FS PRN PRN PRN Reason: FOR ELECTROLYTE REPLACEMENT Ondansetron HCl (Zofran) 4 mg IVP Q6H PRN PRN Reason: Nausea/Vomiting Potassium Chloride (K-Dur) 40 meq PO ASDIR PRN PRN Reason: FOR SERUM K+ 2.5 - 3.5 Potassium Chloride (Klor-Con) 40 meq PER TUBE ASDIR PRN PRN Reason: FOR SERUM K+ 2.5-3.5 Prednisone (Prednisone) 40 mg PO QA-[facility] Last Admin: 06/02/17 08:14 Dose: 40 mg
[2017-06-02] MEDS ORDERED: Aluminum & Magnesium Hydroxide 60 ML, diphenhydrAMINE 150 MG, Lidocaine 2% Viscous Solu... SSW SCH ×4 (10:00)
--- NOTE | 2017-06-02 10:25 | CON ---
DATE OF CONSULTATION: 06/02/2017 The patient was seen in consultation by the hospital group for evaluation of upper airway abscess. BRIEF HISTORY: This is a 31-year-old female with history of diabetes which has been under control un til this recent episode. She began to have problems on with some throat pain and ear pain. She thought that she was catching a mild cold; however, all of her other symptoms have all resolved, no fevers. She reports progressive hoarseness and significant sore throat with swallowing. She pre sented to the emergency room. CAT scan of her neck confirmed an abscess of the supraglottic area, wo rse on the right than the left. She has been on IV antibiotics since this time. She was evaluated b teresita Brown and airway was deemed to be stable at the time. She reports that she has not gotten any worse, not progressed, no shortness of breath or airway concerns; however, she has not improved eithe r. Blood sugars have been on a sliding scale insulin. PAST MEDICAL HISTORY: Diabetes. PAST SURGICAL HISTORY: None. REVIEW OF SYSTEMS: GENERAL: Low grade fevers since and throat pain, otherwise no weight loss, no fevers or chi lls, other than the recent episode, no weight loss. CARDIOVASCULAR: No chest pain or palpitations. PULMONARY: No wheezing, cough, shortness of breath. HEME: No history of bleeding disorders, although she was placed on heparin while in the ICU. SOCIAL HISTORY: One pack a day smoker, social drinker. FAMILY HISTORY: Diabetes. PHYSICAL EXAMINATION: GENERAL: The patient is resting comfortably in the bed. HEENT: Voice is mildly muffled and raspy, mild inspiratory stridor on deep inspiration. NECK: No lymphadenopathy, no masses. Mildly tender over the cricoid area. Oral cavity, oropharynx, no trismus. Tonsils are 2+ pink and healthy, mild redness in the posterior pharynx. EARS: TMs int act. Middle ear is well aerated. Nasal cavity is clear. CHEST: Regular rate and rhythm without murmur. LUNGS: Clear to auscultation bilateral. CT scan of the neck was reviewed by me, which shows a phlegmon versus abscess in the right supraglott ic area with narrowing of the airway, mild associated lymphadenopathy, otherwise structures were with in normal limits. PROCEDURE: Topical anesthesia and decongestant applied to the nasal cavity. Flexible laryngoscopy w as performed at the bedside. The nasal cavity and nasopharynx were clear. The bilateral true vocal cords were fully mobile. There is a right arytenoid and a right medial piriform sinus wall. The ass ociated mucosa is intact and airway is moderately patent. ASSESSMENT: Supraglottic abscess. PLAN: We discussed the risks, benefits, alternatives for a direct laryngoscopy and drainage of this abscess with possible intubation and possible tracheotomy only in an emergent situation. She is very eager to proceed. We will get this scheduled this morning.
[2017-06-02] MEDS ORDERED: Fentanyl 100 MCG/2 ML VIAL ONE (10:34)
[2017-06-02] MEDS ORDERED: Midazolam HCl 2 mg/2 ml Vial ONE (10:34)
[2017-06-02] MEDS ORDERED: EPINEPHrine 1 MG/10 ML Abboject SYRINGE ONE ×2 (11:36→11:37)
[2017-06-02] MEDS ORDERED: EPINEPHrine 1 MG/ML AMP ONE (11:37)
--- NOTE | 2017-06-02 11:42 | PRG ---
DATE OF SERVICE: 06/02/2017 SERVICE: Pulmonary Medicine. INTERVAL HISTORY: The patient is doing really well from a respiratory standpoint. She continues to have some difficulty with her airway and swallow. Otherwise, there have been no overnight events. S he is still certainly handling all of her secretions she just has. She felt that the lesion in her n heath shifted in the middle of the night. It did not create any increasing difficulties with her breat fern. PHYSICAL EXAMINATION: VITAL SIGNS: Afebrile currently. Pulse 65, blood pressure 124/86, respirations 15, saturation 98% o n room air. GENERAL: Patient is awake, alert, in no apparent distress. LUNGS: Excellent air entry. There is no prolonged expiratory phase or wheezing present. HEART: Normal rate, regular. ABDOMEN: Soft, nontender, nondistended. Bowel sounds are positive. MUSCULOSKELETAL: No cyanosis or clubbing. There is no pitting in the bilateral lower extremities. NEUROLOGIC: Grossly nonfocal. LABORATORY DATA: WBC 9.2, hemoglobin 12.1, platelets 368,000. Bicarbonate 27, anion gap is 12. Pot assium 3.4. Basic metabolic profile is otherwise unremarkable. Her blood sugars remain under fairly decent control. All culture results are negative to date. ASSESSMENT: 1. Diabetic ketoacidosis, resolved. 2. Supraglottic abscess. 3. Severe sepsis, resolved. 4. Acute kidney injury, resolved. PLAN: The patient is currently going down for an I&D of this abscess today. If she is stable after the procedure, she can be transitioned out of the IMCU to the regular floor. Pulmonary and Critical Care will continue to follow for the time being.
[2017-06-02] MEDS ORDERED: Promethazine HCl 25 MG/ML VIAL IM PRN (12:36)
[2017-06-02] MEDS ORDERED: Promethazine HCl 25 MG/ML VIAL SLOW IVP PRN (12:36)
[2017-06-02] MEDS ORDERED: Ondansetron HCl/PF 4 MG/2 ML Vial IVP PRN (12:36)
[2017-06-02] MEDS: Vancomycin HCl 1 GM in Premix Bag 1 BAG IVPB SCH ×2 (13:28→21:43)
[2017-06-02] MEDS ORDERED: Succinylcholine Chloride 20 MG/ML 10 ml SYRINGE FS ONE (15:13)
[2017-06-02] MEDS ORDERED: Ondansetron HCl/PF 4 MG/2 ML Vial ONE (15:13)
[2017-06-02] MEDS ORDERED: Lidocaine 1% PF 5 ML VIAL ONE (15:13)
[2017-06-02] MEDS ORDERED: Propofol 200 MG/20 ML VIAL ONE (15:13)
[2017-06-02] MEDS: HumaLOG 300 UNITS/3 ML VIAL SC PRN ×2 (15:15→20:33)
--- NOTE | 2017-06-02 15:43 | OP ---
PREOPERATIVE DIAGNOSES: 1. Supraglottic abscess. 2. Stridor. 3. Dysphonia. 4. Dysphagia. POSTOPERATIVE DIAGNOSES: 1. Supraglottic abscess. 2. Stridor. 3. Dysphonia. 4. Dysphagia. PROCEDURE: Direct laryngoscopy with biopsy and incision and drainage of laryngeal abscess. SURGEON: Kelby Arreola M.D. ESTIMATED BLOOD LOSS: 5 mL. COMPLICATIONS: None. ANESTHESIA: GETA. PROCEDURE IN DETAIL: The patient was taken to the operating room, placed supine on table. General e ndotracheal anesthesia was obtained by the anesthesia staff. An armoured 6.0 endotracheal tube was s ecured to the left lower lip. Head of the bed was turned to 90 degrees. A shoulder roll was placed. The patient was prepped and draped for standard oral procedures. The Dedo laryngoscope was introdu cecily into the oral cavity. Oral cavity, oropharynx, and mucosa were all within oral limits. The barry ent was then placed in suspension. After visualizing the epiglottis and vallecula which is noted to be within normal limits. There was necrotic tissue/phlegmon located on the right arytenoid extending inferiorly into the right medial wall of the pyriform sinus. The postcricoid mucosa was not involve d nor was the esophageal inlet involved. Remainder of the subglottic area and right larynx were with in normal limits. Straight cut forceps were used to remove the necrotic tissue from this area as wel l as drainage flow isolated focus inferior to the left arytenoid. Following this, larynx was irrigat ed with saline and ephedrine pledget was placed under the biopsy site. The patient tolerated the pro cedure well.
[2017-06-02] MEDS ORDERED: Morphine 2 MG/ML SYRINGE SLOW IVP PRN (20:30)
[2017-06-03] MEDS: metroNIDAZOLE 500 MG in Premix Bag 1 BAG IVPB SCH ×4 (05:00→23:56)
[2017-06-03 05:11] LABS: #Basophils 0.1 thou/uL (0.0-0.2); #Lymphocytes 2.5 thou/uL (1.20-3.40); #Monocytes 0.8 thou/uL (0.11-0.59); #Neutrophils 4.9 thou/uL (1.40-6.50); %Basophils 0.7 % (0.0-1.0); %Eosinophils 0.5 % (0.0-10.0); %Lymphocytes 30.2 % (21.0-51.0); %Monocytes 9.6 % (0.0-10.0); Hemoglobin 11.7 g/dL (12.0-16.0); Mean Corpuscular HGB CONC 33.4 g/dL (32.0-36.0); Mean Corpuscular Hemoglobin 34.8 pg (27.0-31.0); Mean Platelet Volume 6.8 fL (7.4-10.4); Platelet Count 347 thou/uL (130-400); Red Blood Cell (RBC) Count 3.37 mill/uL (4.20-5.40); White Blood Cell (WBC) Count 8.3 thou/uL (4.8-10.8)
[2017-06-03 05:37] LABS: Anion Gap 10 mmol/L (10-20); BUN (Urea Nitrogen) 8 mg/dL (7.0-18.7); Calc. Creatinine Clearance 100 mL/min (70-130); Carbon Dioxide 26 mmol/L (22-29); Chloride 105 mmol/L (98-107); Estimated GFR-MDRD Greater than 90; Glucose 186 mg/dL (70-105); Potassium 4.2 mmol/L (3.5-5.1); Sodium 137 mmol/L (136-145)
[2017-06-03] MEDS: Vancomycin HCl 1 GM in Premix Bag 1 BAG IVPB SCH ×4 (06:02→20:40)
[2017-06-03] MEDS: Heparin 5,000 UNITS/ML VIAL SC SCH ×3 (08:39→20:39)
[2017-06-03] MEDS: Insulin Detemir 100 UNITS/ML 10 UNITS in Pre-Filled Syringe 1 EACH SC SCH ×2 (08:39→20:41)
[2017-06-03] MEDS: predniSONE 20 MG TAB PO SCH (08:39)
[2017-06-03] MEDS: Cefepime 2 GM, Syringe 2.5 ML in Sterile Water 10 ML SLOW IVP SCH ×2 (08:40→20:38)
[2017-06-03] MEDS: Famotidine/PF 20 mg/2ml Vial SLOW IVP SCH ×2 (08:40→20:39)
--- NOTE | 2017-06-03 10:58 | CON ---
DATE OF CONSULTATION: 06/03/2017 REASON FOR CONSULTATION: Supraglottic abscess. HISTORY OF PRESENT ILLNESS: A 31-year-old with history of type 1 diabetes mellitus and new onset of progressively worsening pain in the right ear and right side of the throat associated with dysphonia. The patient was treated with amoxicillin and Tylenol, in the emergency room with progression of symptoms , eventually admitted and had an ENT evaluation. The soft tissue neck CT showed complex fluid collection surrounding the true vocal cords extending into the aryepiglottic folds. Dr. Arreola did an I&D of the abscess. Currently, the patient is feeling much improved, has been transferred to the floor. No headaches, visual symptoms. A little bit of sore throat. Dysphonia is about the same. A little bit of cough, no chest pain, no abdominal pain or diarrhea. No genitourinary symptoms. No joint symptoms or skin disorder. No neurological symptoms. PAST MEDICAL HISTORY: Type 1 diabetes. History of allergies, mostly rhinitis. PAST SURGICAL HISTORY: Prior and tubal ligation. FAMILY HISTORY: Noncontributory. SOCIAL HISTORY: Works for [employer], current smoker, drinks occasionally. No drug use. ALLERGIES: NONE. CURRENT MEDICATIONS: Cefepime, Flagyl, and vancomycin, insulin, magnesium, and she was given prednisone as well. PHYSICAL EXAMINATION: VITAL SIGNS: T-max 98.7, blood pressure 140/90, pulse 62, respirations 16-20, O2 sat 97%. GENERAL: Appears in no distress, mildly dysphonic, multiple tattoos. SKIN: No lymphadenopathy. HEENT: Ocular movements are conjugate. Some degree of periorbital edema. Oral cavity, mild redness in the right side, tonsils appear normal. Teeth in good shape. NECK: Supple, no jugular venous distention. Mild tenderness on the right side of the neck. LUNGS: Clear to auscultation and percussion. HEART: Normal. ABDOMEN: Soft, not distended or tender. No ascites. No bladder distention. EXTREMITIES: No joint inflammatory activity. Pulses 1+ in dorsalis pedis. Moves all extremities equally. NEUROLOGIC: Cognitive function appears to be intact. LABORATORY DATA: White cell count was 18,000 down to 8.3, hemoglobin 11, platelets of 347, 59% neutrophils down from 84%, pH 7.44, pCO2 18, [id number]. Sodium 137, creatinine 0.71. The glucose has decreased from 498. Liver profile within normal limits. Albumin 4.3. Urinalysis with 0-3 WBC's. Vancomycin trough 3.4. Microbiology with Staphylococcus aureus, pending susceptibility studies. Group A strep culture negative. Respiratory virus PCR which is negative. ASSESSMENT: 1. Type 1 diabetes mellitus. 2. Supraglottic abscess right side status post surgical drainage secondary to a Staphylococcus aureus pending. DISCUSSION: Supraglottic infections include epiglottitis, retropharyngeal cellulitis, retropharyngeal abscess and peritonsillar abscess. They can cause quite significant illness because of obstruction of airway, but this case was promptly diagnosed and the area drained. Antimicrobials have been started appropriately. Those abscesses can sometimes extend all the way to the superior mediastinum. It may have started as pharyngitis or an area of tonsillitis with an extension into the supraglottic lateral spaces with formation of abscess and necrosis. Recommend waiting for the susceptibility of the organism and the full microbiology before discharge planning. This is a quite serious infection and we need to devise a proper regimen to prevent recrudescence. The duration of therapy will be approximately 14 days. No blood cultures have been submitted and that is a problem since Staphylococcus aureus when in the presence of bacteremia, presents a higher risk of recrudescence when inadequate antimicrobial therapy is given in the face of bacteremia. MTDD
--- NOTE | 2017-06-03 12:33 | PRG ---
DATE OF SERVICE: 06/03/2017 SERVICE: Pulmonary Medicine INTERVAL HISTORY: The patient is doing really well from a cardiovascular and respiratory standpoint. Her breathing is much better today. She does not have any limitation of inspiratory or expiratory flow. She is hoping for discharge today, which I think is perfectly reasonable. PHYSICAL EXAMINATION: VITAL SIGNS: Afebrile, pulse 84, blood pressure 131/68, respirations 16, saturation 94% on room air. GENERAL: The patient is awake, alert, no apparent distress. LUNGS: Excellent air entry. There is no prolonged expiratory phase or wheezing. HEART: Normal rate, regular. ABDOMEN: Soft, nontender, nondistended. Bowel sounds are positive. MUSCULOSKELETAL: No cyanosis or clubbing. There is no pitting in the bilateral lower extremities. LABORATORY DATA: WBC 8.3, hemoglobin 11.7, platelets 347,000. Basic metabolic profile is unremarkab le. Urinalysis is negative. Beta hydroxybutyrate acid has resolved. ASSESSMENT: 1. Diabetic ketoacidosis, resolved. 2. Supraglottic abscess, status post incision and drainage. 3. Severe sepsis, resolved. 4. Acute kidney injury, resolved. 5. Stridor, resolved. DISCUSSION AND PLAN: The patient has no further requirements for inpatient Pulmonary or Critical Car e opinion. As such, I will sign off. Based on the operative report and imaging study, we were not d ealing with a retropharyngeal abscess. This was mostly a supraglottic abscess that has been adequate ly drained. A biopsy is currently pending. Dr. Lawrence; however, is directing the antibiotic course a nd duration.
--- NOTE | 2017-06-03 12:40 | PDOC.PN ---
- Subjective Encounter Start Date: 06/03/17 Encounter Start Time: 14:00 CC: DKA Sub: Pt denies dyspnea - Objective Resuscitation Status: Resuscitation Status FULL:Full Resuscitation Vital Signs & Weight: Vital Signs (12 hours) Temp Pulse Resp BP Pulse Ox 06/03/17 08:00 98.0 F 62 16 134/86 97 Weight Admit Weight 123 lb Weight 123 lb I&O: 06/02/17 06/03/17 06/04/17 06:59 06:59 06:59 Intake Total 7570 600 Output Total 2100 Balance 5470 600 Result Diagrams: 06/03/17 04:03 06/03/17 04:03 Additional Labs: Accuchecks 06/03/17 06/03/17 06/03/17 11:17 08:45 05:00 POC Glucose 123 H 144 H 137 H 06/02/17 06/02/17 06/02/17 23:44 20:07 15:10 POC Glucose 240 H 417 H 359 H Dx/Plan - Plan Physical Examination Constitutional: NAD HEENT: PERRLA, moist MMs Respiratory: no wheezing, no rales, no rhonchi mildly stridorous subjectively imprv compared to yesterday Cardiovascular: RRR, no significant murmur, no rub Gastrointestinal: soft, non-tender, no distention, positive bowel sounds Musculoskeletal: no edema, pulses present Neurological: moves all 4 limbs Psychiatric: normal affect, A&O x 3 Skin: no rash, normal turgor, cap refill <2 seconds Dx/Plan (1) DKA, type 1 Code(s): E10.10 - TYPE 1 DIABETES MELLITUS WITH KETOACIDOSIS WITHOUT COMA Status: Acute (2) Peritonsillar abscess Code(s): J36 - PERITONSILLAR ABSCESS Status: Acute (3) Sepsis Code(s): A41.9 - SEPSIS, UNSPECIFIED ORGANISM Status: Acute - Plan DKA improved * off insulin gtt on SQ regimen, tolerating PO, continue levemir sepsis 2/2 periepigotteal abscess, immproved * appreciate critical care c/s * continue cefepime \, flagyl and vancomycin. Reviewed ID note will wait for final sensitivies * symptomatic mgmt - pain ctrl peritonsillar/ periepiglotteal abscess * appreciate ENT c/s * abx as above * decrease prednisone dose to 20mg daily diet: as vijaya activity: as vijaya dvt ppx: heparin
[2017-06-03 13:41] LABS: Vancomycin, Trough 11.2 ug/mL
[2017-06-04] MEDS: Vancomycin HCl 1 GM in Premix Bag 1 BAG IVPB SCH ×2 (03:19→08:36)
[2017-06-04 04:45] LABS: Anion Gap 9 mmol/L (10-20); BUN (Urea Nitrogen) 9 mg/dL (7.0-18.7); Calc. Creatinine Clearance 92 mL/min (70-130); Calcium 9.2 mg/dL (7.8-10.44); Carbon Dioxide 29 mmol/L (22-29); Chloride 105 mmol/L (98-107); Estimated GFR-MDRD 87; Glucose 79 mg/dL (70-105); Potassium 3.9 mmol/L (3.5-5.1); Sodium 139 mmol/L (136-145)
[2017-06-04 04:50] LABS: #Eosinphils 0.1 thou/uL (0.0-0.7); #Lymphocytes 3.5 thou/uL (1.20-3.40); #Monocytes 0.8 thou/uL (0.11-0.59); #Neutrophils 3.3 thou/uL (1.40-6.50); %Basophils 0.4 % (0.0-1.0); %Eosinophils 1.4 % (0.0-10.0); %Lymphocytes 44.8 % (21.0-51.0); %Monocytes 10.5 % (0.0-10.0); %Neutrophils 42.9 % (42.0-75.0); Hemoglobin 11.2 g/dL (12.0-16.0); Mean Corpuscular HGB CONC 33.2 g/dL (32.0-36.0); Mean Corpuscular Hemoglobin 34.8 pg (27.0-31.0); Mean Platelet Volume 6.9 fL (7.4-10.4); Platelet Count 373 thou/uL (130-400); RBC Distribution Width 10.9 % (11.5-14.5); Red Blood Cell (RBC) Count 3.22 mill/uL (4.20-5.40); White Blood Cell (WBC) Count 7.7 thou/uL (4.8-10.8)
[2017-06-04] MEDS: metroNIDAZOLE 500 MG in Premix Bag 1 BAG IVPB SCH (05:28)
[2017-06-04] MEDS ORDERED: predniSONE 20 MG TAB PO SCH (08:00)
[2017-06-04] MEDS: Cefepime 2 GM, Syringe 2.5 ML in Sterile Water 10 ML SLOW IVP SCH (08:23)
[2017-06-04] MEDS: Heparin 5,000 UNITS/ML VIAL SC SCH (08:27)
[2017-06-04] MEDS: Famotidine/PF 20 mg/2ml Vial SLOW IVP SCH (08:40)
[2017-06-04 08:41] LABS: Vancomycin, Trough 22.4 ug/mL
--- NOTE | 2017-06-04 08:47 | PDOC.PN ---
- Subjective Encounter Start Date: 06/04/17 Encounter Start Time: 09:00 Subjective: Throat a bit raw but feeling much better. Eating well. No other complaints. -: Ready to go home. - Objective Resuscitation Status: Resuscitation Status FULL:Full Resuscitation MAR Reviewed: Yes Vital Signs & Weight: Vital Signs (12 hours) Temp Pulse Resp BP Pulse Ox 06/04/17 08:19 98.0 F 70 18 141/91 H 97 Weight Admit Weight 123 lb Weight 123 lb I&O: 06/03/17 06/04/17 06/05/17 06:59 06:59 06:59 Intake Total 600 1600 Balance 600 1600 Result Diagrams: 06/04/17 03:44 06/04/17 03:44 Additional Labs: Accuchecks 06/04/17 06/04/17 06/03/17 05:07 00:17 20:45 POC Glucose 73 122 H 145 H 06/03/17 06/03/17 06/03/17 15:49 11:17 08:45 POC Glucose 160 H 123 H 144 H Phys Exam - Physical Examination Constitutional: NAD HEENT: moist MMs Respiratory: no wheezing, no rales, no rhonchi, clear to auscultation bilateral Cardiovascular: RRR, no significant murmur Gastrointestinal: soft, non-tender, positive bowel sounds Neurological: non-focal, moves all 4 limbs Psychiatric: normal affect, A&O x 3 Dx/Plan (1) Peritonsillar abscess Code(s): J36 - PERITONSILLAR ABSCESS Status: Acute Comment: s/p drainage, growing MSSA, will d/c once Dr. Lawrence has determined an appropriate regimen (2) DKA, type 1 Code(s): E10.10 - TYPE 1 DIABETES MELLITUS WITH KETOACIDOSIS WITHOUT COMA Status: Resolved Comment: back on long acting insulin (3) Sepsis Code(s): A41.9 - SEPSIS, UNSPECIFIED ORGANISM Status: Resolved - Plan cont current plan of care, continue antibiotics Will d/c on abx per Dr. Lawrence' recommendations. * . - Discharge Day Encounter end time: 09:30
[2017-06-04] MEDS: Insulin Detemir 100 UNITS/ML 10 UNITS in Pre-Filled Syringe 1 EACH SC SCH (10:15)
[2017-06-04 11:43] VITALS: BP 148/68; TEMP 97.6
--- NOTE | 2017-06-04 13:13 | DIS ---
PRIMARY CARE PHYSICIAN: Dr. Rick Miramontes DIAGNOSES ON ADMISSION: 1. Diabetic ketoacidosis. 2. Tonsillitis. 3. Sepsis. 4. Possible peritonsillar cellulitis. DIAGNOSES ON DISCHARGE: 1. Peritonsillar abscess, status post incision and drainage. 2. Diabetic ketoacidosis, resolved. 3. Sepsis, resolved. 4. Insulin-dependent diabetes mellitus type 1. PROCEDURES: 1. Ultrasound soft tissues of the neck showing borderline sized right and left neck lymph nodes with out evidence of abscess. 2. CT of the soft tissues of the neck with contrast showing a complex fluid collection surrounding t he true vocal cords and extending to the aryepiglottic folds likely representing an abscess. 3. Direct laryngoscopy with biopsy and incision and drainage of laryngeal abscess. PERTINENT LABORATORY DATA: White blood cell count 21,000 on admission down to 7 at discharge. Micro biology culture of the abscess growing methicillin-sensitive Staph aureus sensitive to cephalosporins and fluoroquinolones, resistant to clindamycin. HOSPITAL COURSE: This is a 31-year-old white female with a known history of insulin-dependent diabet es mellitus on insulin pump at home who came in with 3 days of sore throat and swelling in the throat causing painful swallowing. She was carried to an outside facility, was diagnosed with DKA and sent in to our facility. The DKA was controlled with fluids, insulin, and potassium. She had persistent symptoms of her neck and so she had a CT of the neck with the above results. ENT was consulted and she had incision and drainage of the abscess. Infectious Disease was consulted as well who managed h er antibiotics. She had marked improvement in her symptoms just a little rawness in the back of her throat by the time of discharge. She was afebrile with normal white cell count, methicillin sensitiv e Staph aureus grew back and Dr. Lawrence determined to send her home with double coverage with Levaquin and Keflex for 2 weeks. She is stable for discharge. DISCHARGE MANAGEMENT: Discharged home. Follow up with Dr. Lawrence in 2-3 weeks and with Judie Kimble, tomorrow. ACTIVITY: As tolerated. DIET: Diabetic diet. DISCHARGE MEDICATIONS: 1. The patient is to resume her home insulin pump as directed by her primary care doctor. 2. Levaquin 500 mg daily for 2 weeks. 3. Keflex 500 mg twice a day for 2 weeks.
[2017-06-04] MEDS ORDERED: Vancomycin HCl 750 MG in Sodium Chloride 0.9% 250 ML 250 ML IVPB SCH (15:00)
[2017-06-05 10:19] LABS: Fungus Stain Final report (.); Fungus Stain Result 1 Yeast observed (.)
== END 2017-06-04 12:13 | disposition home or self-care (01) | DRG 853 ==
LOC: ERS 04:06 → IMCU/EMU 07:47 → T4-B 06-02 17:45
PROVIDERS: ADMIT Hospitalist; ATTEND Hospitalist
PROC: 0C9S8ZZ Drainage of Larynx, Via Natural or Artificial Opening Endoscopic (ICD-10-PCS; principal; 2017-06-02)
PROC: 0CBS8ZX Excision of Larynx, Via Natural or Artificial Opening Endoscopic, Diagnostic (ICD-10-PCS; 2017-06-02)
DX: A41.9 Sepsis, unspecified organism (principal); E10.10 Type 1 diabetes mellitus with ketoacidosis without coma; N17.9 Acute kidney failure, unspecified; J36 Peritonsillar abscess; F17.210 Nicotine dependence, cigarettes, uncomplicated; B95.61 Methicillin susceptible Staphylococcus aureus infection as the cause of diseases classified elsewhere; Z79.4 Long term (current) use of insulin
CPT/HCPCS: 36415; 36416; 70491; 71045; 76536; 80048; 80053; 80202; 81001; 82010; 82330; 82550; 82553; 82803; 83605; 83735; 83930; 84100; 84484; 84703; 85025; 87070; 87077; 87081; 87086; 87102; 87186; 87205; 87206; 87430; 87633; 87798; 88305; 88312; 93005; 93010; 96365; 96366; 96374; 96375; A4216; J0171; J0692; J0696; J1644; J1815; J2001; J2250; J2270; J2405; J2704; J3010; J3370; J3490; J7050; J7506; S0028